=== PATIENT | female | born 1970 | race Caucasian/White ===

== ENCOUNTER 2018-07-06 00:11 | Inpatient (IN) | payer BC ==
[2018-07-05 13:48] LABS: INR 0.94
[~2018-07-06] VITALS: Ht 170.2 cm; Wt 137.0 kg
[2018-07-06] VITALS (13 sets, daily range): BP systolic 84–129; BP diastolic 36–81
[~2018-07-06 00:11] MED LIST: ALBU8.5H IH; ESCI10TA8 PO; FLUT1DIS28 IH; GABA-549 PO; LISI-362 PO; METF-450 PO; TIO18R INH
--- NOTE | 2018-07-06 07:26 | LEVENE H&P ---
DATE OF ADMISSION: July 06, 2018 IDENTIFICATION/CHIEF COMPLAINT The patient is a 39-year-old woman with a chief complaint of right knee pain. HISTORY OF PRESENT ILLNESS The patient has a long standing history of knee arthritis, progressively painful and debilitating, refractory to conservative care. Surgery is indicated to relieve symptoms after failure of nonoperative measures. PAST MEDICAL HISTORY 1. Type 2 diabetes. 2. Hypertension. 3. Sleep apnea. PAST SURGICAL HISTORY Hysterectomy. ALLERGIES MORPHINE SULFA BACTRIM CURRENT MEDICATIONS 1. Metformin 500 mg p.o. t.i.d. 2. Lisinopril 5 mg p.o. q day. 3. Citalopram 20 mg p.o. q day. 4. ProAir 25/50 2 times per day. 5. Gabapentin 800 mg p.o. t.i.d. FAMILY HISTORY Mother with liver and colon cancer. Grandmother with colon cancer. SOCIAL HISTORY Notable for smoking tobacco for 30 years at a pack a day, stopping in 2015. She denies alcohol use or abuse. REVIEW OF SYSTEMS Negative. PHYSICAL EXAMINATION GENERAL: This is a well-developed, well-nourished female who appears stated age. HEENT: Normocephalic, atraumatic. Extraocular muscles intact. NECK: Supple, non-tender. LUNGS: Clear to auscultation bilaterally. HEART: Regular rate and rhythm. ABDOMEN: Benign. BACK: Non-tender without deformity. ORTHOPEDIC EXAMINATION The right knee is stiff at end range of motion. Crepitus is noted. Effusions are present. Gross stability is good. Extensor function is intact. Calf is nontender. Neurovascular function intact. RADIOGRAPHS Demonstrate endstage knee arthritis. ASSESSMENT Right knee endstage degenerative joint disease progressively painful and debilitating, refractory to conservative care. PLAN Per patient request, we are going to proceed with total knee arthroplasty. The nature of the procedure, the risks, benefits, the anticipated rehabilitative course were reviewed. Risks include but are not limited to , major medical or anesthetic complication, infection, neurovascular injury, blood transfusion, stiffness, scarring, fracture, tendon rupture, instability, implant loosening, migration or failure, persistent or recurrent pain or symptoms, need for additional surgery and other unforeseen. She understands and wishes to proceed. A signed permit is placed in the chart. No guarantees are given or implied. [place]
[2018-07-06] MEDS ORDERED: FAMOTIDINE 20 MG TAB PO ONE (07:45)
[2018-07-06] MEDS ORDERED: ONDANSETRON 4 MG/2 ML VIAL ONE (10:56)
[2018-07-06] MEDS ORDERED: LIDOCAINE MPF 1% 5 ML VIAL ONE (10:56)
[2018-07-06] MEDS ORDERED: PROPOFOL EMUL(*) 10MG/ML 20 ML 20 ML ONE (10:56)
[2018-07-06] MEDS ORDERED: DEXAMETHASONE SOD 4 MG/ML VIAL ONE (10:56)
[2018-07-06] MEDS ORDERED: fentaNYL CITR 100 MCG/2 ML AMP ONE ×2 (10:57→16:24)
[2018-07-06] MEDS ORDERED: KETAMINE HCL-NS 50 MG/5 ML SYR ONE (10:59)
[2018-07-06] MEDS ORDERED: LIDOCAINE/SOD BICARB 8.4% SYR ID ONE (11:15)
[2018-07-06] MEDS ORDERED: FAMOTIDINE 20 MG/50 ML PREMIX IVPB ONE (11:15)
[2018-07-06] MEDS ORDERED: PREGABALIN 150 MG CAPSULE PO ONE (11:15)
[2018-07-06] MEDS ORDERED: cloNIDine EPIDUR INJ 100MCG/ML 40 MCG, ROPIVACAINE 0.5% 20 ML VIAL 25 ML, EPINEPHrine H... INJ ONE (11:15)
[2018-07-06] MEDS ORDERED: NORMOSOL R SOLN(*) 1000 ML BAG 1,000 ML IV PRN ×2 (11:15→15:00)
[2018-07-06] MEDS ORDERED: MIDAZOLAM 2 MG/2 ML VIAL IVP PRN (11:15)
[2018-07-06] MEDS ORDERED: TRANEXAMIC AC 1000 MG/10ML SDV 1,000 MG in DEXTROSE 5% 50 ML BAG 50 ML IV ONE (11:15)
[2018-07-06] MEDS ORDERED: ACETAMINOPHEN 500 MG TAB PO ONE (11:15)
[2018-07-06] MEDS ORDERED: ceFAZolin(*) 1 GM VIAL 3 GM in NS(*) 0.9% 100 ML BAG 100 ML IVPB ONE (11:15)
[2018-07-06] MEDS ORDERED: VANCOMYCIN 1 GM VIAL ONE (12:07)
[2018-07-06] MEDS ORDERED: MIDAZOLAM 2 MG/2 ML VIAL ONE (13:07)
[2018-07-06] MEDS ORDERED: diphenhydrAMINE 50 MG/ML VIAL IVP PRN (15:00)
[2018-07-06] MEDS ORDERED: ZOLPIDEM TARTRATE 5 MG TAB PO PRN (15:00)
[2018-07-06] MEDS ORDERED: PROMETHAZINE 25 MG/ML 1 ML AMP IVP PRN (15:00)
[2018-07-06] MEDS ORDERED: BISACODYL 10 MG SUPP PR PRN (15:00)
[2018-07-06] MEDS ORDERED: FLUSH 10 ML SYR IVP PRN (15:00)
[2018-07-06] MEDS ORDERED: APAP/HYDROCODONE 325/7.5 TAB PO PRN (15:00)
[2018-07-06] MEDS ORDERED: diphenhydrAMINE 25 MG CAP PO PRN (15:00)
[2018-07-06] MEDS ORDERED: MAGNESIUM HYDROXIDE* 30ML UDCP PO PRN (15:00)
[2018-07-06] MEDS ORDERED: BENZOCAINE/MENTHOL 1 EACH LOZG PO PRN (15:00)
[2018-07-06] MEDS ORDERED: ACETAMINOPHEN 325 MG TAB PO PRN (15:00)
--- NOTE | 2018-07-06 15:10 | RADIOLOGY IMAGING REPORT ---
FACILITY: [facility] [place] PATIENT NAME: Eileen Rojas : 1970 MR: [id number] V: [id number] EXAM DATE: ORDERING PHYSICIAN: ARTEM VALLEJO TECHNOLOGIST: Location: [facility] [place] Patient: Eileen Rojas : 1970 Visit/Account:[id number] Date of Sevice: 07/06/2018 Exam type: KNEE LIMITED RIGHT History: POST OP R TKA Comparison: None. Findings: Two views submitted There is a right knee arthroplasty that appears in good anatomic alignment. Soft tissue gas and skin sonja project over the anterior aspect this postoperative knee IMPRESSION: 1. Right knee arthroplasty appears in good anatomic alignment Report Dictated By: Mylene Torres MD at 07/06/2018 3:05 PM Report E-Signed By: Mylene Torres MD at 07/06/2018 3:05 PM WSN:[id number]
[2018-07-06] MEDS ORDERED: GABA-506 PO (17:01)
[2018-07-06] MEDS: IBUPROFEN 800 MG TAB PO SCH (17:36)
[2018-07-06] MEDS: DIAZEPAM 5 MG TAB PO PRN (18:19)
--- NOTE | 2018-07-06 18:38 | OPERATIVE REPORT 1 ---
EVENT DATE: July 06, 2018 SURGEON: Ben Pathak MD ANESTHESIOLOGIST: Ryan Doll MD ANESTHESIA: General plus spinal. HALL TENDER: Jerry Kwong PA-C PREOPERATIVE DIAGNOSIS Right knee degenerative joint disease. POSTOPERATIVE DIAGNOSIS Right knee degenerative joint disease. PROCEDURE PERFORMED Right total knee arthroplasty. ESTIMATED BLOOD LOSS Minimal. DRAINS None. SPECIMENS None. COMPLICATIONS None apparent. TOURNIQUET TIME 48 minutes IMPLANTS USED Shelia Triathlon knee system, a 4 PS femur, 4 standard tibial baseplate, 36 mm universal cemented, all polyethylene patellar button, and a size 11 mm thickness PS tibial tray liner. Polyethylene is X3. INDICATIONS Eileen is a 48-year-old woman with intractable and disability related to end- stage knee arthritis. Surgery is indicated to relieve pain and improve function after failure of nonoperative measures. DESCRIPTION OF PROCEDURE Patient taken to the operating room and placed supine on the operating table. Spinal block is administered by the anesthesiologist. General anesthesia is induced. Antibiotics and TXA are administered IV. Right lower extremity is prepped and draped in the usual sterile fashion for knee arthroplasty. Limb is exsanguinated with an Esmarch bandage. Tourniquet is inflated to 275 mmHg. A midline longitudinal incision is made, carried down through the skin and subcutaneous tissue to the extensor mechanism. Full-thickness flap is developed far enough medially to allow medial parapatellar arthrotomy to be performed. Patella is everted. Knee is brought into flexed position. Fat pad, anterior horns of the menisci, and the cruciate ligaments are debrided. A subperiosteal medial release is initiated in a gentle along the anteromedial tibia to start to balance the knee. A step drill is used to enter the distal femur. A 10-inch long alignment guide is used to engage the isthmus, cut set for 6 degrees of valgus relative to the anatomic axis. The 10 mm resection block is applied and pinned. Cuts made with an oscillating saw. AP sizing guide is applied to the distal femoral cut, positioned for 3 degrees of external rotation relative to the posterior condyles. This reveals that size 4 is optimal without risk of notching. The four-in-one cutting block is applied. Anterior, posterior, posterior chamfer, and anterior chamfer cuts are made respectively. PS block is applied and centered. Medial and lateral bone is removed through the box. Trial femur has nice [id number] fit. Attention is turned to tibial preparation. The extramedullary guide is applied, positioned for varus, valgus, posterior slope, and rotation. This is set to resect 9 mm from the relatively intact lateral tibial plateau. It is dropped down a millimeter or so to ensure an adequate cut. Block is pinned, extramedullary alignment check is made, and cuts made with an oscillating saw. After osteophyte removal and a bit of release of the deep MCL, the gaps are balanced and symmetric with no additional releases required. The size 4 tibial baseplate provides optimum bony coverage without soft tissue overhang. Trial femur is inserted along with the trial tibia and liner. Knee is brought to extension. Patella is taken from the starting thickness of 22 to a residual of 14 with a patellar clamp and oscillating saw. The 36 provides optimum bony coverage without soft tissue overhang. Lug holes are drilled. Patella tracks nicely with the no-touch technique. Final tibial preparation consists of assuring appropriate rotational and translational positioning of the component. The boss is reamed. The fin is punched. Surfaces are lavaged. Mixed methyl methacrylate is made and the components cemented in a single stage. Once the cement is fully polymerized, tourniquet is deflated. Hemostasis is assured. Wound is copiously lavaged. The 11 PS tibial tray trial fills up the gap ideally. Knee dropped to full extension without hyperextension, providing optimal soft tissue stability and balance. The tray is lavaged and dried, and the actual liner is locked into the baseplate. Joint is reduced. Arthrotomy is closed in flexion with #2 Ethibond, subcutaneous tissue with 3-0 Vicryl, the skin with surgical sonja. Xeroform and 4 x 4's applied as a dry, sterile dressing and compression wrap. The patient awakened from anesthesia and taken to the recovery room in stable condition having tolerated the procedure well. Plan is for standard TKA rehab protocol. [facility]
[2018-07-06] MEDS ORDERED: ALBUTEROL 2.5 MG/3 ML NEB NEB PRN (18:55)
--- NOTE | 2018-07-06 19:06 | Hospitalist Progress Note ---
Subjective Progress Notes Subjective No cp/sob. 1600cc of crystalloid, TXA and dexamethasone given intra-op. Physical Exam Vital Signs Date Time Temp Pulse Resp B/P (MAP) Pulse Ox O2 Delivery O2 Flow Rate FiO2 07/06/18 16:47 93 Nasal Cannula 3.0 07/06/18 16:44 98.4 82 14 106/66 (79) General Appearance: Alert, Awake, No Acute Distress Cardiovascular: Regular Rate and Rhythm Respiratory: Clear to Auscultation Extremities: No Edema Assessment and Plan Problems: (1) Status post knee replacement Status: Acute Assessment & Plan: No CV/pulmonary issues. She denies a history of DVT/PE. She will be on ASA 325mg a day for 30 days after surgery. (2) HTN (hypertension) Status: Chronic Assessment & Plan: Chronically on Lisinopril. It will be continued with parameters. (3) Asthma Status: Chronic Assessment & Plan: Lungs clear. Chronically on Advair and Spiriva, which will be continued. Albuterol prn. (4) Peripheral neuropathy Status: Chronic Assessment & Plan: Chronically on gabapentin, which will be continued. (5) Depression Status: Chronic Assessment & Plan: Continue chronic escitalopram. (6) T2DM (type 2 diabetes mellitus) Status: Chronic Assessment & Plan: Chronically on metformin which will be held initially. Will check glucose AC and HS with SSI level 2 to cover. Exam Sepsis Risk: No Definite Risk Problem Qualifiers (1) Status post knee replacement: Laterality: right Qualified Codes: Z96.651 - Presence of right artificial knee joint ALDO PARMAR MD Jul 06, 2018 19:06
[2018-07-06] MEDS: SALMETEROL/FLUTIC 250/50 1 INH INH SCH (19:41)
[2018-07-06] MEDS: KETOROLAC 15 MG/ML VIAL IVP PRN (20:30)
[2018-07-06] MEDS: ceFAZolin(*) 1 GM VIAL 1 GM in NS(*) 0.9% 100 ML ADDVANT BAG 100 ML IVPB SCH (20:31)
[2018-07-06] MEDS ORDERED: NS(*) 0.9% 250 ML BAG 250 ML ONE (20:51)
[2018-07-06] MEDS: LISINOPRIL 10 MG TAB PO SCH (21:00)
[2018-07-06] MEDS: GABAPENTIN(*) 300 MG CAP 600 MG, GABAPENTIN(*) 100 MG CAP 200 MG PO SCH (21:00)
[2018-07-06] MEDS ORDERED: GABAPENTIN 800 MG TAB PO SCH (21:00)
[2018-07-06] MEDS: ESCITALOPRAM OXALATE 10 MG TAB PO SCH (21:12)
[2018-07-06] MEDS: INSULIN HUM LISPRO 100 UN/ML 3 ML VIAL SUBQ PRN (22:02)
[2018-07-06] MEDS: MEPERIDINE 50 MG/ML SYR IVP PRN (23:43)
[2018-07-07] VITALS (8 sets, daily range): BP systolic 92–118; BP diastolic 35–66
[2018-07-07] MEDS: IBUPROFEN 800 MG TAB PO SCH ×3 (01:31→16:42)
[2018-07-07] MEDS: DIAZEPAM 5 MG TAB PO PRN ×3 (01:32→19:49)
[2018-07-07] MEDS: ceFAZolin(*) 1 GM VIAL 1 GM in NS(*) 0.9% 100 ML ADDVANT BAG 100 ML IVPB SCH ×2 (04:21→11:50)
[2018-07-07] MEDS: TIOTROPIUM BROM INH 18 MCG/CAP INH SCH (05:44)
[2018-07-07] MEDS: SALMETEROL/FLUTIC 250/50 1 INH INH SCH ×2 (05:44→17:21)
--- NOTE | 2018-07-07 06:43 | Hospitalist Progress Note ---
Subjective Progress Notes Subjective No cp/sob. Physical Exam Vital Signs Date Time Temp Pulse Resp B/P (MAP) Pulse Ox O2 Delivery O2 Flow Rate FiO2 07/07/18 01:00 74 111/57 (75) 90 CPAP 2.0 07/06/18 16:44 98.4 14 Intake and Output 07/07/18 07:00 Intake Total 2790 ml Output Total 675 ml Balance 2115 ml Intake Oral 700 ml IV Total 1850 ml Other 240 ml Output Urine Total 675 ml # Voids 3 General Appearance: Alert, Awake, No Acute Distress Assessment and Plan Problems: (1) Status post knee replacement Status: Acute Assessment & Plan: No CV/pulmonary issues. She denies a history of DVT/PE. She will be on ASA 325mg a day for 30 days after surgery. (2) T2DM (type 2 diabetes mellitus) Status: Chronic Assessment & Plan: Chronically on metformin which will be held until tomorrow. Will check glucose AC and HS with SSI level 2 to cover. (3) HTN (hypertension) Status: Chronic Assessment & Plan: Chronically on Lisinopril. It will be continued with parameters. (4) Asthma Status: Chronic Assessment & Plan: Lungs clear. Chronically on Advair and Spiriva, which will be continued. Albuterol prn. (5) Peripheral neuropathy Status: Chronic Assessment & Plan: Chronically on gabapentin, which will be continued. (6) Depression Status: Chronic Assessment & Plan: Continue chronic escitalopram. (7) Severe obesity (BMI >= 40) Exam Sepsis Risk: No Definite Risk Problem Qualifiers (1) Status post knee replacement: Laterality: right Qualified Codes: Z96.651 - Presence of right artificial knee joint ALDO PARMAR MD Jul 07, 2018 06:43
[2018-07-07] MEDS: INSULIN HUM LISPRO 100 UN/ML 3 ML VIAL SUBQ PRN ×2 (09:23→20:58)
[2018-07-07] MEDS: ASPIRIN 325 MG TAB PO SCH (09:25)
[2018-07-07] MEDS: GABAPENTIN(*) 300 MG CAP 600 MG, GABAPENTIN(*) 100 MG CAP 200 MG PO SCH ×3 (09:25→20:51)
[2018-07-07] MEDS: MEPERIDINE 50 MG/ML SYR IVP PRN ×2 (09:42→17:29)
--- NOTE | 2018-07-07 15:03 | Medical Nutrition Therapy ---
Nutrition Anthropometrics Height (Inches): 67.00 Height (Calculated Centimeters: 170.241458 Weight (Pounds): 302 Weight (Calculated Kilograms): 136.985 BMI: 47.3 [place] Nutrition Score: Adequate [place] Nutrition Risk Score: 17 Dietary Referral Nutrition Risk Factors: Nutrition Risk Comment: Physical Findings Physical Appearance: Morbidly Obese 40+ Skin Appearance Skin Appearance: Edema Edema Location Modifier: Right Edema Location: Foot Type of Edema: Degree of Edema: Gastrointestinal Symptoms GI Symtoms: Tube Present: Bowel Sounds: Recent Bowel Pattern: Stool Characteristics: Nutritional Diagnosis Nutritional Risk Acuity 2: Blood Glucose > 300mg/dl Nutritional Risk Acuity 3: Morbid Obesity Nutrition Diagnosis: Inappropriate Carb Intake Nutrition Etiology: Physiological Causes Nutrition Problem/Etiology/Sym: AEB pt on regular diet with BG of 300 Adjusted Energy Requirement Re: 2720 (20 kcal/kg) Protein Requirement: 108 (.8gm/kg) Fluid Requirement: 2720 (1ml/kg) Diet Type: Diet as Tolerated CHILO/REG Nutrition Intervention: Change diet Nutrition Monitoring & Eval Nutrition Goals: Eat 75-100% Meal RD Patient Assessment Time: [address] Assessment Type: RD Assessment Patient Nutrition Acuity: 2-Moderate Follow Up Date: Jul 12, 2018 Nutritional Comment: 07/07 Pt admitted for TKA. Pt on regular diet and eating 100%. BMI is in class 3 obesity range. Pt has dx of T2DM a BG 300. Pt recieving metformin and insulin. Recommend change to diabetic diet to control CHO intake. Cont to monitor and encourage intake. JOSEPH MURPHY Jul 07, 2018 15:03
[2018-07-07] MEDS: KETOROLAC 15 MG/ML VIAL IVP PRN (15:25)
[2018-07-07] MEDS: oxyCODONE HCL 5 MG CAP PO PRN (20:50)
[2018-07-07] MEDS: ESCITALOPRAM OXALATE 10 MG TAB PO SCH (20:50)
[2018-07-07] MEDS: LISINOPRIL 10 MG TAB PO SCH (20:51)
[2018-07-08] MEDS: MEPERIDINE 50 MG/ML SYR IVP PRN (00:01)
[2018-07-08] MEDS: IBUPROFEN 800 MG TAB PO SCH ×2 (00:40→09:54)
[2018-07-08 00:45] VITALS: BP 136/54
[2018-07-08] MEDS: KETOROLAC 15 MG/ML VIAL IVP PRN (01:20)
[2018-07-08] MEDS: DIAZEPAM 5 MG TAB PO PRN ×2 (04:48→09:55)
[2018-07-08] MEDS: SALMETEROL/FLUTIC 250/50 1 INH INH SCH (05:50)
[2018-07-08] MEDS: TIOTROPIUM BROM INH 18 MCG/CAP INH SCH (05:50)
[2018-07-08] MEDS: oxyCODONE HCL 5 MG CAP PO PRN (06:32)
[2018-07-08] MEDS ORDERED: OXYC-869 PO (07:51)
[2018-07-08] MEDS ORDERED: OXYC10TA67 PO (08:02)
[2018-07-08 08:15] VITALS: BP 91/52
[2018-07-08] MEDS ORDERED: metFORMIN HCL XR 500 MG TABCR PO SCH (09:00)
[2018-07-08] MEDS: GABAPENTIN(*) 300 MG CAP 600 MG, GABAPENTIN(*) 100 MG CAP 200 MG PO SCH (09:55)
[2018-07-08] MEDS: ASPIRIN 325 MG TAB PO SCH (09:55)
[2018-07-08] MEDS ORDERED: ASPI-757 PO (10:06)
--- NOTE | 2018-07-08 11:37 | Hospitalist Progress Note ---
Subjective Progress Notes Subjective She has complaints of pain to the surgical site. She had no acute events overnight. Patient Complains of: Cardiovascular: No: Chest Pain Respiratory: No: Shortness of Breath Physical Exam Vital Signs Date Time Temp Pulse Resp B/P (MAP) Pulse Ox O2 Delivery O2 Flow Rate FiO2 07/08/18 09:59 18 07/08/18 08:15 98.1 82 91/52 (65) 93 Nasal Cannula 4.0 Intake and Output 07/08/18 07:00 Intake Total 1730 ml Balance 1730 ml Intake Oral 1630 ml IV Total 100 ml # Voids 6 General Appearance: Alert, Awake, No Acute Distress, Afebrile Neuro: No Gross deficits Cardiovascular: Regular Rate and Rhythm Respiratory: No Respiratory Distress, Clear to Auscultation Psych: Alert & Oriented X3, Appropriate Mood & Affect Assessment and Plan Problems: (1) Status post knee replacement Status: Acute Assessment & Plan: No CV/pulmonary issues. She denies a history of DVT/PE. She will be on ASA 325mg a day for 30 days after surgery. (2) T2DM (type 2 diabetes mellitus) Status: Chronic Assessment & Plan: Chronically on metformin. Will check glucose AC and HS with SSI level 2 to cover. (3) HTN (hypertension) Status: Chronic Assessment & Plan: Chronically on Lisinopril. It will be continued with parameters. (4) Asthma Status: Chronic Assessment & Plan: Lungs clear. Chronically on Advair and Spiriva, which will be continued. Albuterol prn. (5) Peripheral neuropathy Status: Chronic Assessment & Plan: Chronically on gabapentin, which will be continued. (6) Depression Status: Chronic Assessment & Plan: Continue chronic escitalopram. (7) Severe obesity (BMI >= 40) Exam Sepsis Risk: No Definite Risk Problem Qualifiers (1) Status post knee replacement: Laterality: right Qualified Codes: Z96.651 - Presence of right artificial knee joint GURU PEREIRA [facility] Jul 08, 2018 11:37
== END 2018-07-08 11:40 | disposition home or self-care (01) | DRG 470 ==
LOC: OR 00:11 → MED 16:40
PROVIDERS: ADMIT Orthopaedic Surgery; ATTEND Orthopaedic Surgery
PROC: 5A09357 Assistance with Respiratory Ventilation, Less than 24 Consecutive Hours, Continuous Positive Airway Pressure (ICD-10-PCS; 2018-07-06)
PROC: 0SRC0J9 Replacement of Right Knee Joint with Synthetic Substitute, Cemented, Open Approach (ICD-10-PCS; principal; 2018-07-06 12:34)
DX: M17.11 Unilateral primary osteoarthritis, right knee (principal); Z68.42 Body mass index [BMI] 45.0-49.9, adult; E11.40 Type 2 diabetes mellitus with diabetic neuropathy, unspecified; I10 Essential (primary) hypertension; M25.761 Osteophyte, right knee; E66.01 Morbid (severe) obesity due to excess calories; J44.9 Chronic obstructive pulmonary disease, unspecified; F32.9 Major depressive disorder, single episode, unspecified; Z88.5 Allergy status to narcotic agent; Z88.2 Allergy status to sulfonamides; Z88.1 Allergy status to other antibiotic agents; Z87.891 Personal history of nicotine dependence; Z90.710 Acquired absence of both cervix and uterus; Z79.84 Long term (current) use of oral hypoglycemic drugs
CPT/HCPCS: 36415; 36416; 82948; 85610; 86850; 86900; 86901; 94640; 97161; C1713; C1776; J0171; J0690; J0735; J1100; J1885; J2001; J2175; J2250; J2405; J2704; J2795; J3010; J3370; J3490; J3535; J7050; J7060